=== PATIENT | female | born 1995 | race Two or more races ===

== ENCOUNTER 2017-05-18 09:42 | Emergency (ER) | payer MEDICAID ==
[~2017-05-18] VITALS: Ht 154.9 cm; Wt 39.0 kg
[~2017-05-18 09:42] MED LIST: BUPR100T6 PO; NORG1TAB26 PO
[2017-05-18] MEDS ORDERED: PRED15SO50 PO (10:00)
[2017-05-18] MEDS ORDERED: GABA300C10 PO (10:00)
[2017-05-18] MEDS ORDERED: AZAT50TA9 PO (10:00)
[2017-05-18] MEDS ORDERED: LAMO25TA6 PO (10:00)
[2017-05-18] MEDS ORDERED: HYDR200T PO (10:00)
[2017-05-18] MEDS ORDERED: RANI300T3 PO (10:00)
[2017-05-18] MEDS ORDERED: OMEP20TA62 PO (10:00)
[2017-05-18 10:36] LABS: BLOOD UREA NITROGEN 8 mg/dL (7-18)
[2017-05-18] MEDS ORDERED: LORazepam 1MG TABLET PO ONE (11:00)
[2017-05-18] MEDS ORDERED: LORazepam 1MG TABLET ONE (11:31)
[2017-05-18 11:37] VITALS: BP 108/66
== END 2017-05-18 12:50 ==
LOC: ED 11:46
DX: R06.00 Dyspnea, unspecified (principal); R06.02 Shortness of breath
CPT/HCPCS: 36415; 71010; 80048; 82040; 85025; 85379; 93005; 99285

== ENCOUNTER 2017-05-30 22:33 | Emergency (ER) | payer MEDICAID ==
[~2017-05-30] VITALS: Ht 157.5 cm; Wt 36.5 kg
[~2017-05-30 22:33] MED LIST changes: +AZAT50TA9 PO; +GABA300C10 PO; +HYDR200T PO; +LAMO25TA6 PO; +OMEP20TA62 PO; +PRED15SO50 PO; +RANI300T3 PO
[2017-05-30] MEDS ORDERED: SODIUM CHLORIDE 0.9% 1,000ML IVBOLUS ONE (23:00)
[2017-05-30] MEDS ORDERED: MORPHINE SULFATE 4 MG/ML, 1ML IVPush PRN (23:00)
[2017-05-30] MEDS ORDERED: ONDANSETRON 2MG/ML, 2ML IVPush ONE (23:00)
[2017-05-30] MEDS ORDERED: MORPHINE SULFATE 4 MG/ML, 1ML ONE (23:12)
[2017-05-30] MEDS ORDERED: IBUPROFEN 200 MG TABLET ONE (23:12)
[2017-05-30] MEDS ORDERED: ONDANSETRON 2MG/ML, 2ML ONE (23:13)
[2017-05-30] MEDS ORDERED: IBUPROFEN 200 MG TABLET PO ONE (23:30)
[2017-05-30 23:32] LABS: ASPARTATE AMINO TRANSFERASE 46 U/L (15-37); BLOOD UREA NITROGEN 8 mg/dL (7-18)
[2017-05-31 00:27] LABS: PATH.CAST-FLAG NOT PRESENT; SPERM-FLAG NOT PRESENT; SRC-FLAG NOT PRESENT; XTAL-FLAG NOT PRESENT; YLC-FLAG NOT PRESENT
[2017-05-31 02:46] VITALS: BP 115/68
== END 2017-05-31 02:48 ==
LOC: ED 23:27
DX: R51 Headache (principal); B34.9 Viral infection, unspecified; M32.9 Systemic lupus erythematosus, unspecified
CPT/HCPCS: 36415; 70450; 71020; 80053; 81001; 83605; 84145; 84703; 85025; 87040; 96361; 96374; 96375; 99285; J2405; J7030

== ENCOUNTER 2017-06-08 15:35 | Observation (INO) | payer MEDICAID ==
[~2017-06-08] VITALS: Ht 157.5 cm; Wt 34.2 kg
[2017-06-08] MEDS ORDERED: LORazepam 1MG TABLET PO ONE (16:00)
[2017-06-08] MEDS ORDERED: LORazepam 1MG TABLET ONE (16:11)
[2017-06-08 16:28] LABS: BLOOD UREA NITROGEN 21 mg/dL (7-18)
[2017-06-08 16:33] LABS: ASPARTATE AMINO TRANSFERASE 35 U/L (15-37); DIFF TOTAL CELLS COUNTED 100 CELL DIFF
[2017-06-08 16:34] LABS: ACETAMINOPHEN < 2 mcg/mL (10-30)
[2017-06-08 16:44] LABS: DAU SCREEN DISCLAIMER
[2017-06-08 16:59] LABS: VERIFY COUNTS? YES
[2017-06-08 17:08] LABS: HCG UR OBC PASS
[2017-06-08 18:51] VITALS: BP 109/75
[2017-06-08] MEDS ORDERED: PLEASE ENTER HEIGHT AND WEIGHT MC SCH (19:00)
[2017-06-08 21:01] VITALS: BP 115/86
[2017-06-08] MEDS: MIRTAZAPINE 15 MG TABLET PO SCH (21:30)
[2017-06-08] MEDS: HYDROXYCHLOROQUINE 200 MG TABLET PO SCH (21:30)
[2017-06-08] MEDS: GABAPENTIN 300 MG CAPSULE PO SCH (21:31)
[2017-06-08] MEDS: QUETIAPINE 100MG TABLET PO SCH (21:31)
[2017-06-09] MEDS ORDERED: LORazepam 0.5MG TABLET PO ONE
[2017-06-09 00:10] VITALS: BP 97/63
[2017-06-09 07:43] VITALS: BP 110/77
[2017-06-09] MEDS: AZATHIOPRINE 50 MG TABLET PO SCH (09:00)
[2017-06-09] MEDS ORDERED: AZATHIOPRINE 50 MG TABLET PO SCH (09:00)
[2017-06-09] MEDS: ARIPIPRAZOLE 15 MG TABLET PO SCH (09:21)
[2017-06-09] MEDS: DULOXETINE 30 MG CAPSULE.DR PO SCH (09:22)
[2017-06-09] MEDS: GABAPENTIN 300 MG CAPSULE PO SCH ×3 (09:22→21:28)
[2017-06-09] MEDS: HYDROXYCHLOROQUINE 200 MG TABLET PO SCH ×2 (09:22→21:29)
[2017-06-09 19:37] VITALS: BP 116/80
[2017-06-09] MEDS: MIRTAZAPINE 15 MG TABLET PO SCH (21:29)
[2017-06-09] MEDS: QUETIAPINE 100MG TABLET PO SCH (21:29)
[2017-06-10 07:38] VITALS: BP 102/70
[2017-06-10] MEDS: DULOXETINE 30 MG CAPSULE.DR PO SCH (08:24)
[2017-06-10] MEDS: ARIPIPRAZOLE 15 MG TABLET PO SCH (08:24)
[2017-06-10] MEDS: AZATHIOPRINE 50 MG TABLET PO SCH (08:25)
[2017-06-10] MEDS: HYDROXYCHLOROQUINE 200 MG TABLET PO SCH ×2 (08:26→21:50)
[2017-06-10] MEDS: GABAPENTIN 300 MG CAPSULE PO SCH ×3 (08:26→21:50)
[2017-06-10 19:47] VITALS: BP 114/74
[2017-06-10] MEDS: QUETIAPINE 100MG TABLET PO SCH (21:50)
[2017-06-10] MEDS: MIRTAZAPINE 15 MG TABLET PO SCH (21:51)
[2017-06-11 07:43] VITALS: BP 93/66
[2017-06-11] MEDS: ARIPIPRAZOLE 15 MG TABLET PO SCH (09:09)
[2017-06-11] MEDS: DULOXETINE 30 MG CAPSULE.DR PO SCH (09:09)
[2017-06-11] MEDS: HYDROXYCHLOROQUINE 200 MG TABLET PO SCH ×2 (09:09→20:59)
[2017-06-11] MEDS: GABAPENTIN 300 MG CAPSULE PO SCH ×3 (09:10→20:59)
[2017-06-11] MEDS: AZATHIOPRINE 50 MG TABLET PO SCH (09:10)
[2017-06-11 20:00] VITALS: BP 103/69
[2017-06-11] MEDS ORDERED: QUETIAPINE 100MG TABLET PO SCH (21:00)
== END 2017-06-11 21:19 ==
LOC: ED 16:34 → EDIP 16:35 → ED 17:10 → 3E 18:46
PROVIDERS: ADMIT Internal Medicine; ATTEND Internal Medicine
DX: F33.2 Major depressive disorder, recurrent severe without psychotic features (principal); R45.851 Suicidal ideations; M32.9 Systemic lupus erythematosus, unspecified; G43.909 Migraine, unspecified, not intractable, without status migrainosus; F41.1 Generalized anxiety disorder; Z87.11 Personal history of peptic ulcer disease
CPT/HCPCS: 36415; 80053; 80307; 80329; 81003; 81025; 85025; 93005; 99285; G0378; J7500; J7512; G0480

== ENCOUNTER 2017-07-07 18:18 | Observation (INO) | payer MEDICAID ==
[~2017-07-07] VITALS: Ht 157.5 cm; Wt 41.4 kg
[2017-07-07 18:55] LABS: HEMATOCRIT 39.2 % (34.6-47.8); HEMOGLOBIN 12.7 g/dL (11.7-16.4); WHITE BLOOD COUNT 4.6 x10^3/uL (4.5-13.2)
[2017-07-07 19:08] LABS: ASPARTATE AMINO TRANSFERASE 33 U/L (15-37); BLOOD UREA NITROGEN 11 mg/dL (7-18)
[2017-07-07 19:14] LABS: ACETAMINOPHEN < 2 mcg/mL (10-30)
[2017-07-07] MEDS ORDERED: QUET300T5 PO (19:16)
[2017-07-07 19:34] LABS: DAU SCREEN DISCLAIMER
[2017-07-07] MEDS ORDERED: IBUPROFEN 200 MG TABLET ONE (20:29)
[2017-07-07] MEDS ORDERED: IBUPROFEN 200 MG TABLET PO ONE (20:30)
[2017-07-07] MEDS ORDERED: ACETAMINOPHEN 325 MG TABLET PO PRN (21:00)
[2017-07-07] MEDS ORDERED: ONDANSETRON ODT 4 MG PO PRN (21:00)
[2017-07-07 21:31] VITALS: BP 114/81
[2017-07-07] MEDS: GABAPENTIN 300 MG CAPSULE PO SCH (22:14)
[2017-07-07] MEDS: HYDROXYCHLOROQUINE 200 MG TABLET PO SCH (22:14)
[2017-07-08 07:22] VITALS: BP 93/61
[2017-07-08] MEDS: AZATHIOPRINE 50 MG TABLET PO SCH (08:20)
[2017-07-08] MEDS: HYDROXYCHLOROQUINE 200 MG TABLET PO SCH ×2 (08:20→20:31)
[2017-07-08] MEDS: DULOXETINE 30 MG CAPSULE.DR PO SCH (08:20)
[2017-07-08] MEDS: GABAPENTIN 300 MG CAPSULE PO SCH ×3 (08:20→20:31)
[2017-07-08] MEDS: SENNA/DOCUSATE TABLET PO SCH (08:20)
[2017-07-08] MEDS ORDERED: QUETIAPINE 100MG TABLET PO SCH (09:00)
[2017-07-08] MEDS: QUETIAPINE 100MG TABLET PO SCH (18:34)
[2017-07-08 20:00] VITALS: BP 109/75
[2017-07-09 08:00] VITALS: BP 104/76
[2017-07-09] MEDS: AZATHIOPRINE 50 MG TABLET PO SCH (09:00)
[2017-07-09] MEDS: HYDROXYCHLOROQUINE 200 MG TABLET PO SCH ×2 (09:00→20:31)
[2017-07-09] MEDS: DULOXETINE 30 MG CAPSULE.DR PO SCH (09:00)
[2017-07-09] MEDS: SENNA/DOCUSATE TABLET PO SCH (09:00)
[2017-07-09] MEDS: GABAPENTIN 300 MG CAPSULE PO SCH ×3 (09:00→20:31)
[2017-07-09 19:29] VITALS: BP 106/72
[2017-07-09] MEDS: QUETIAPINE 100MG TABLET PO SCH (20:32)
[2017-07-10] MEDS: DULOXETINE 30 MG CAPSULE.DR PO SCH (07:40)
[2017-07-10] MEDS: AZATHIOPRINE 50 MG TABLET PO SCH (07:40)
[2017-07-10] MEDS: HYDROXYCHLOROQUINE 200 MG TABLET PO SCH ×2 (07:40→20:26)
[2017-07-10] MEDS: SENNA/DOCUSATE TABLET PO SCH (07:41)
[2017-07-10] MEDS: GABAPENTIN 300 MG CAPSULE PO SCH ×3 (07:41→20:26)
[2017-07-10 07:43] VITALS: BP 101/77
[2017-07-10] MEDS: IBUPROFEN 200 MG TABLET PO PRN (10:51)
[2017-07-10 19:35] VITALS: BP 107/69
[2017-07-10] MEDS: QUETIAPINE 100MG TABLET PO SCH (20:26)
[2017-07-11] MEDS: IBUPROFEN 200 MG TABLET PO PRN ×2 (07:52→16:00)
[2017-07-11 08:00] VITALS: BP 111/80
[2017-07-11] MEDS: GABAPENTIN 300 MG CAPSULE PO SCH ×3 (08:08→20:38)
[2017-07-11] MEDS: HYDROXYCHLOROQUINE 200 MG TABLET PO SCH ×2 (08:08→20:38)
[2017-07-11] MEDS: SENNA/DOCUSATE TABLET PO SCH (08:09)
[2017-07-11] MEDS: AZATHIOPRINE 50 MG TABLET PO SCH (08:09)
[2017-07-11] MEDS: DULOXETINE 30 MG CAPSULE.DR PO SCH (08:09)
[2017-07-11] MEDS ORDERED: ACETAMINOPHEN 325 MG TABLET PO PRN (14:30)
[2017-07-11] MEDS ORDERED: ONDANSETRON ODT 4 MG PO PRN (14:30)
[2017-07-11 19:21] VITALS: BP 116/81
[2017-07-11] MEDS ORDERED: QUETIAPINE 100MG TABLET ONE (19:43)
[2017-07-11] MEDS: QUETIAPINE 100MG TABLET PO SCH (20:38)
[2017-07-12 08:08] VITALS: BP 115/78
[2017-07-12] MEDS: AZATHIOPRINE 50 MG TABLET PO SCH (08:32)
[2017-07-12] MEDS: HYDROXYCHLOROQUINE 200 MG TABLET PO SCH ×2 (08:32→20:23)
[2017-07-12] MEDS: DULOXETINE 30 MG CAPSULE.DR PO SCH (08:32)
[2017-07-12] MEDS: IBUPROFEN 200 MG TABLET PO PRN ×2 (08:32→15:31)
[2017-07-12] MEDS: GABAPENTIN 300 MG CAPSULE PO SCH ×3 (08:32→20:23)
[2017-07-12] MEDS: SENNA/DOCUSATE TABLET PO SCH (08:42)
[2017-07-12] MEDS ORDERED: SENNA/DOCUSATE TABLET PO SCH (09:00)
[2017-07-12 19:24] VITALS: BP 102/71
[2017-07-12] MEDS: QUETIAPINE 100MG TABLET PO SCH (20:23)
[2017-07-13 08:53] VITALS: BP 100/67
[2017-07-13] MEDS: SENNA/DOCUSATE TABLET PO SCH (09:00)
[2017-07-13] MEDS: DULOXETINE 30 MG CAPSULE.DR PO SCH (10:07)
[2017-07-13] MEDS: GABAPENTIN 300 MG CAPSULE PO SCH ×3 (10:08→21:00)
[2017-07-13] MEDS: HYDROXYCHLOROQUINE 200 MG TABLET PO SCH ×2 (10:08→21:00)
[2017-07-13] MEDS: AZATHIOPRINE 50 MG TABLET PO SCH (10:08)
[2017-07-13 19:15] VITALS: BP 113/79
[2017-07-13 19:22] VITALS: BP 101/64
[2017-07-13] MEDS: QUETIAPINE 100MG TABLET PO SCH (21:00)
== END 2017-07-14 01:30 ==
LOC: ED 19:28 → EDIP 20:21 → 3E 21:28
DX: R45.851 Suicidal ideations (principal); M32.9 Systemic lupus erythematosus, unspecified; F33.2 Major depressive disorder, recurrent severe without psychotic features; F41.1 Generalized anxiety disorder; G43.909 Migraine, unspecified, not intractable, without status migrainosus
CPT/HCPCS: 36415; 80053; 80307; 80329; 81003; 84703; 85025; 99285; G0378; J7500; G0480